=== PATIENT | male | born 1950 | race African-American/Black ===

== ENCOUNTER 2018-02-15 04:54 | Emergency (ER) | payer MEDICARE ==
[~2018-02-15] VITALS: Ht 170.2 cm; Wt 68.0 kg
[~2018-02-15 04:54] MED LIST: ACYC200C PO; AMLO10TA6 PO; ASPI-612 PO; ATOR20TA58 PO; DOXA1TAB2 PO; LISI-130 PO; PARO20TA3 PO; RANI150T2 PO; TRAM50TA PO; TRAZ-86 PO
[2018-02-15 04:55] VITALS: BP 154/96
[2018-02-15] MEDS ORDERED: MELO7.5T29 PO (05:13)
[2018-02-15] MEDS ORDERED: AMOX500T PO (05:13)
[2018-02-15] MEDS ORDERED: TRAM50TA PO (05:13)
--- NOTE | 2018-02-15 05:14 | PHYS DOC ---
Past Medical History Past Medical History: CAD, COPD, GERD, Hypertension, Other Additional Past Medical Histor: herpes simplex 2, hepatitis Additional Past Surgical Histo: cardiac stent Smoking: Cigarettes Alcohol Use: Occasionally Drug Use: None Adult General Chief Complaint Chief Complaint: DENTAL PROBLEM HPI HPI Patient is a 68 year old male who presents with right lower jaw, dental pain. This started last night. Increased pain with palpation. No foul taste in the mouth. No trauma. No drainage. No relief with home ibuprofen. Reports that the discomfort is moderate to severe.[] Review of Systems Review of Systems Constitutional: Denies fever or chills [] Eyes: Denies change in visual acuity, redness, or eye pain [] HENT: Denies nasal congestion or sore throat [] Respiratory: Denies cough or shortness of breath [] Cardiovascular: No chest pain or palpitations[] GI: Denies abdominal pain, nausea, vomiting, bloody stools or diarrhea [] : Denies dysuria or hematuria [] Musculoskeletal: Denies back pain or joint pain [] Integument: Denies rash or skin lesions [] Neurologic: Denies headache, focal weakness or sensory changes [] Endocrine: Denies polyuria or polydipsia [] All other systems were reviewed and found to be within normal limits, except as documented in this note. Allergies Allergies Allergies Coded Allergies Type Severity Reaction Last Updated Verified pantoprazole Allergy Intermediate Itching 11/09/13 Yes Physical Exam Physical Exam Constitutional: Well developed, well nourished, no acute distress, non-toxic appearance. [] HENT: Normocephalic, atraumatic, bilateral external ears normal, oropharynx moist, no oral exudates, nose normal. Patient has poor dentition with multiple teeth missing as well as multiple caries in various states of care. There is tenderness to percussion of his tooth #31. No drainable abscess.[] Eyes: PERRLA, EOMI, conjunctiva normal, no discharge. [] Neck: Normal range of motion, no tenderness, supple, no stridor. [] Cardiovascular:Heart rate regular rhythm, no murmur [] Lungs & Thorax: Bilateral breath sounds clear to auscultation [] Abdomen: Not examined. [] Skin: Warm, dry, no erythema, no rash. [] Back: No tenderness, no CVA tenderness. [] Extremities: No cyanosis, no clubbing, ROM intact, no edema. [] Neurologic: Alert and oriented X 3, normal motor function, normal sensory function, no focal deficits noted. [] Psychologic: Affect normal, judgement normal, mood normal. [] EKG EKG [] Radiology/Procedures Radiology/Procedures [] Course & Med Decision Making Course & Med Decision Making Pertinent Labs and Imaging studies reviewed. (See chart for details) Medical decision making: Patient appears to have a periapical abscess. No evidence of systemic toxicity. No Josr exam showed a, no peritonsillar abscess.[] Dragon Disclaimer Dragon Disclaimer This electronic medical record was generated, in whole or in part, using a voice recognition dictation system. Departure Departure Impression: Primary Impression: Dental abscess Disposition: 01 HOME, SELF-CARE Condition: GOOD Referrals: YVAN BROOKE DO (PCP) Follow-up in 2 days Patient Instructions: Dental Abscess Additional Instructions: Follow-up with your regular doctor as well as dentist in the next 2 days. Return to the ER if worsening pain, fever, or any other concerns. Scripts Meloxicam (MELOXICAM) 7.5 Mg Tablet 7.5 MG PO DAILY, #20 TAB Prov: STEPHANIE HALE DO 02/15/18 Tramadol Hcl (TRAMADOL HCL) 50 Mg Tablet 50 MG PO Q6HRS PRN for PAIN, #20 TAB Prov: STEPHANIE HALE DO 02/15/18 Amoxicillin (AMOXICILLIN) 500 Mg Tablet 1 TAB PO TID, #30 TAB Prov: STEPHANIE HALE DO 02/15/18 STEPHANIE HALE DO Feb 15, 2018 05:14
[2018-02-15] MEDS ORDERED: AMOXICILLIN 250 MG CAPSULE. PO ONE (05:30)
[2018-02-15] MEDS ORDERED: NAPROXEN 500 MG TABLET PO ONE (05:30)
== END 2018-02-15 05:20 | disposition home or self-care (01) ==
LOC: ER 04:55
DX: K04.7 Periapical abscess without sinus (principal); K21.9 Gastro-esophageal reflux disease without esophagitis; I10 Essential (primary) hypertension; J44.9 Chronic obstructive pulmonary disease, unspecified; I25.10 Atherosclerotic heart disease of native coronary artery without angina pectoris; F17.210 Nicotine dependence, cigarettes, uncomplicated; Z95.5 Presence of coronary angioplasty implant and graft; Z88.8 Allergy status to other drugs, medicaments and biological substances
CPT/HCPCS: 99283